=== PATIENT | female | born 1960 | race Caucasian/White ===

== ENCOUNTER → 2022-05-03 15:49 | Outpatient (CLI) | payer OTHER, SELFPAY ==
--- NOTE | ~2022-05-03 | CT_ITS ---
EXAMINATION: CT facial bones wo con DATE: 05/03/2022 16:21 INDICATION: Tendinitis. Ulcerated lesion of. Left sided facial pain. TECHNIQUE: Computed tomography (CT) of the facial bones and maxillofacial region was performed withou t intravenous contrast. Automated exposure control and iterative reconstruction technique were employ ed. Exam dose: 450.46 mGy-cm total exam DLP. COMPARISON: None. FINDINGS: A single remaining left upper molar tooth with cavity periapical lucency is noted. The cheryl ent is otherwise a Melinda. Normal alignment at the temporomandibular joints. No mandible fracture. The paranasal sinuses and mastoid air cells are normally developed and aerated. No facial fracture or bone destruction. The frontozygomatic sutures, orbital rims and haro and zygom atic arches and remainder of the facial bones are intact. IMPRESSION: No facial fracture or bone destruction Normal paranasal sinuses and mastoid air cells Single remaining upper left molar with cavity and periapical lucency No facial cellulitis or abscess is detected Reviewed, dictated and finalized at [facility]. Reviewed, dictated and finalized at [facility].
== END ==
PROVIDERS: PCP Family Medicine; Visit Provider Family Medicine
DX: K05.10 Chronic gingivitis, plaque induced (principal)
CPT/HCPCS: 70486